=== PATIENT | male | born 1960 | race African-American/Black ===

== ENCOUNTER 2019-02-26 14:10 | Emergency (ER) | payer OTHER ==
--- NOTE | 2019-02-26 15:12 | RAD ---
EXAM: 4 views of the left elbow HISTORY: Status post bone removal on with soft tissue swelling and blisters COMPARISON: None FINDINGS: No elbow effusion is seen. A bony fragment extends posterior to the humerus on the lateral radiograph. This is difficult to appreciate on the other views. Moderate degenerative changes are seen in the left elbow joint. Severe posterior soft tissue swelling is present. Overlying skin staple s are present. IMPRESSION: Possible retained fracture fragment of the distal humerus.
[2019-02-26 15:15] LABS: #Eosinphils 0.1 thou/uL (0.0-0.7); #Lymphocytes 1.6 thou/uL (1.20-3.40); #Monocytes 0.6 thou/uL (0.11-0.59); #Neutrophils 3.6 thou/uL (1.40-6.50); %Basophils 0.6 % (0.0-1.0); %Eosinophils 2.2 % (0.0-10.0); %Lymphocytes 26.3 % (21.0-51.0); %Monocytes 10.5 % (0.0-10.0); %Neutrophils 60.3 % (42.0-75.0); Mean Corpuscular Hemoglobin 29.5 pg (27.0-31.0); Mean Platelet Volume 7.1 fL (7.4-10.4); Platelet Count 252 thou/uL (130-400); RBC Distribution Width 13.6 % (11.5-14.5); Red Blood Cell (RBC) Count 3.06 mill/uL (4.70-6.10); White Blood Cell (WBC) Count 5.9 thou/uL (4.8-10.8)
[2019-02-26 15:28] LABS: ALT (SGPT) 50 U/L (8-55); AST (SGOT) 80 U/L (5-34); Albumin 3.8 g/dL (3.5-5.0); Alkaline Phosphatase 66 U/L (40-150); Anion Gap 12 mmol/L (10-20); BUN (Urea Nitrogen) 16 mg/dL (8.4-25.7); Bilirubin, Total 1.2 mg/dL (0.2-1.2); CRP (Inflammatory) 14.39 mg/dL (= or < 0.5); Calc. Creatinine Clearance 0 mL/min (70-130); Calcium 9.2 mg/dL (7.8-10.44); Carbon Dioxide 26 mmol/L (22-29); Chloride 106 mmol/L (98-107); Estimated GFR-MDRD 74; Globulin 3.7 g/dL (2.4-3.5); Glucose 100 mg/dL (70-105); Potassium 4.3 mmol/L (3.5-5.1); Protein, Total 7.5 g/dL (6.0-8.3); Sodium 140 mmol/L (136-145)
[2019-02-26] MEDS ORDERED: Piperacillin/Tazobactam 4.5 GM VIAL ONE (15:58)
[2019-02-26] MEDS ORDERED: Sodium Chloride 0.9% 100 ML ONE (15:58)
--- NOTE | 2019-02-26 17:07 | ULT ---
Venous duplex sonogram left upper extremity HISTORY: Left arm pain and edema. FINDINGS: The left internal jugular and subclavian veins were evaluated along with the axillary, brac hial, cephalic, and basilic veins. Good color and spectral Doppler flow. Compression and augmentation where appropriate. IMPRESSION: No sonographic evidence of DVT left upper extremity.
== END 2019-02-26 17:54 | disposition still patient (30) ==
LOC: ERS 14:10
DX: M25.422 Effusion, left elbow (principal); E11.9 Type 2 diabetes mellitus without complications; K21.9 Gastro-esophageal reflux disease without esophagitis; I10 Essential (primary) hypertension; M19.90 Unspecified osteoarthritis, unspecified site; F17.210 Nicotine dependence, cigarettes, uncomplicated; Z79.82 Long term (current) use of aspirin; Z79.899 Other long term (current) drug therapy; Z79.84 Long term (current) use of oral hypoglycemic drugs; Z79.891 Long term (current) use of opiate analgesic
CPT/HCPCS: 80053; 83605; 85025; 85652; 86140; 96361; 96365; J2543; J3490